=== PATIENT | male | born 2000 | race Hispanic/Latino ===

== ENCOUNTER 2021-03-06 22:32 | Emergency (ER) | payer SELFPAY ==
[~2021-03-06] VITALS: Ht 172.7 cm; Wt 122.5 kg
[2021-03-06] MEDS ORDERED: LIDOCAINE HCL 2% VISCOUS 15 ML UDCUP PO ONE (23:00)
[2021-03-06] MEDS ORDERED: DICYCLOMINE 20MG (10MG/ML) AMP IM ONE (23:00)
[2021-03-06] MEDS ORDERED: FAMOTIDINE 20MG TAB PO ONE (23:00)
[2021-03-06] MEDS ORDERED: MAG/ALUM/SIMETH 30 ML UDCUP PO ONE (23:00)
[2021-03-06 23:01] LABS: APPEARANCE,URINE Clear (CLEAR); BILIRUBIN,URINE Negative (NEGATIVE); COLOR,URINE Yellow (YELLOW); GLUCOSE, URINE (UA) Negative (NEGATIVE); KETONES,URINE Negative (NEGATIVE); LEUKOCYTE ESTERASE ,URINE Negative (NEGATIVE); NITRATE,URINE Negative (NEGATIVE); OCCULT BLOOD,URINE Trace (NEGATIVE); PH,URINE 8.5 (5.0-8.0); PROTEIN,URINE Negative (NEGATIVE); UROBILINOGEN,URINE 0.2 mg/dL (0.2-1.0)
[2021-03-06] MEDS ORDERED: LIDOCAINE HCL 2% VISCOUS 15 ML UDCUP ONE (23:14)
[2021-03-06] MEDS ORDERED: DICYCLOMINE HCL 10 MG/5 ML ML PO ONE (23:15)
[2021-03-06] MEDS ORDERED: FAMOTIDINE 20MG TAB ONE (23:15)
[2021-03-06] MEDS ORDERED: MAG/ALUM/SIMETH 30 ML UDCUP ONE (23:15)
[2021-03-06 23:16] LABS: BASOPHILS % (AUTO) 0.1 % (0.0-5.0); EOSINOPHILS % (AUTO) 0.1 % (0.0-8.0); HEMATOCRIT 42.6 % (42-54); LYMPHOCYTES % (AUTO) 10.3 % (21.0-51.0); MEAN CORPUSCULAR HEMOGLOBIN 29.2 pg (27.0-33.0); MEAN CORPUSCULAR VOLUME 85.9 fL (80-100); MONOCYTES % (AUTO) 4.1 % (3.0-13.0); NEUTROPHILS % (AUTO) 84.9 % (40.0-77.0); PLATELET COUNT (AUTO) 305 K/uL (130-400); RED BLOOD CELL COUNT(AUTO) 4.96 MIL/uL (4.50-6.20); RED CELL DISTRIBUTION WIDTH 13.5 % (11.0-15.5); WHITE BLOOD COUNT (AUTO) 19.1 K/uL (4.8-10.8)
[2021-03-06 23:18] LABS: BACTERIA,URINE None Seen /HPF (None Seen); SQUAMOUS EPITHELIAL CELL,UR Few /HPF (0-2)
[2021-03-06 23:19] LABS: WBC,URINE None Seen /HPF (0-1)
[2021-03-06 23:25] LABS: CREATININE 0.8 mg/dL (0.5-1.5); POTASSIUM 3.4 mmol/L (3.5-5.1)
[2021-03-06 23:30] LABS: ALBUMIN 4.2 g/dL (3.5-5.0); BILIRUBIN,TOTAL 0.7 mg/dL (0.2-1.0); TOTAL PROTEIN, SERUM 8.2 g/dL (6.0-8.3)
[2021-03-06] MEDS ORDERED: POTASSIUM BICARB/CIT AC 25 MEQ TABLET.EFF PO ONE (23:30)
[2021-03-07] MEDS ORDERED: POTASSIUM BICARB/CIT AC 25 MEQ TABLET.EFF ONE (00:09)
[2021-03-07] MEDS ORDERED: ONDA4TAB10 PO (01:45)
[2021-03-07] MEDS ORDERED: METO-296 PO (01:45)
[2021-03-07] MEDS ORDERED: DICY20TA2 PO (01:46)
[2021-03-07 01:58] VITALS: BP 122/76
== END 2021-03-07 02:04 | disposition home or self-care (01) ==
LOC: EDH 22:32
DX: E86.9 Volume depletion, unspecified (principal); R11.10 Vomiting, unspecified; E66.9 Obesity, unspecified; Z79.899 Other long term (current) drug therapy; Z68.41 Body mass index [BMI] 40.0-44.9, adult
CPT/HCPCS: 36415; 74176; 80053; 81001; 83690; 85025

== ENCOUNTER 2021-11-27 01:42 | Emergency (ER) | payer OTHER ==
[~2021-11-27] VITALS: Ht 172.7 cm; Wt 123.4 kg
[~2021-11-27 01:42] MED LIST: ONDA4TAB10 PO
[2021-11-27] MEDS ORDERED: KETOROLAC 15MG/ML VIAL (15MG/ML) IV ONE (02:30)
[2021-11-27] MEDS ORDERED: ONDANSETRON 4MG INJ IVP ONE (02:30)
[2021-11-27] MEDS ORDERED: 0.9%NACL 1000ML 1,000 ML IV ONE (02:30)
[2021-11-27 02:51] LABS: BASOPHILS % (AUTO) 0.1 % (0.0-5.0); HEMATOCRIT 46.6 % (42-54); LYMPHOCYTES % (AUTO) 5.2 % (21.0-51.0); MEAN CORPUSCULAR HEMOGLOBIN 29.5 pg (27.0-33.0); MEAN CORPUSCULAR HGB CONC 34.5 g/dL (32.0-36.0); MEAN CORPUSCULAR VOLUME 85.3 fL (79-99); MONOCYTES % (AUTO) 1.8 % (3.0-13.0); NEUTROPHILS % (AUTO) 92.3 % (40.0-77.0); PLATELET COUNT (AUTO) 370 K/uL (130-400); RED BLOOD CELL COUNT(AUTO) 5.46 MIL/uL (4.50-6.20); RED CELL DISTRIBUTION WIDTH 13.1 % (11.0-15.5); WHITE BLOOD COUNT (AUTO) 21.6 K/uL (4.8-10.8)
[2021-11-27] MEDS ORDERED: DiphenhydrAMINE HCL 50 MG/ML VIAL IV ONE (03:00)
[2021-11-27] MEDS ORDERED: HALOPERIDOL INJ 5 MG/ML VIAL IV SCH (03:00)
[2021-11-27 03:11] LABS: CREATININE 0.9 mg/dL (0.5-1.5); POTASSIUM 4.4 mmol/L (3.5-5.1)
[2021-11-27 03:15] LABS: ALBUMIN 4.5 g/dL (3.5-5.0)
[2021-11-27] MEDS ORDERED: COMP10 PO (03:49)
[2021-11-27 05:00] VITALS: BP 145/86
== END 2021-11-27 05:27 | disposition home or self-care (01) ==
LOC: EDH 01:42
DX: A05.9 Bacterial foodborne intoxication, unspecified (principal); E86.9 Volume depletion, unspecified; R11.2 Nausea with vomiting, unspecified; Z79.1 Long term (current) use of non-steroidal anti-inflammatories (NSAID)
CPT/HCPCS: 99284; 96374; 96361; 96375; 86677; 80053; 85025; 36415; J1200; J7030; J1630; J2405; J1885

== ENCOUNTER 2023-03-29 07:53 | Emergency (ER) | payer OTHER ==
[~2023-03-29] VITALS: Ht 172.7 cm; Wt 136.1 kg
[~2023-03-29 07:53] MED LIST changes: +COMP10 PO
[2023-03-29] MEDS ORDERED: IBUPROFEN 600 MG TABLET PO ONE (08:30)
[2023-03-29 09:03] LABS: SARS-CoV-2, RNA, NAAT NEGATIVE SARS CoV-2 (NEGATIVE)
[2023-03-29 09:12] LABS: INFLUENZA TYPE A Negative For Type A (NEGATIVE); INFLUENZA TYPE B Negative For Type B (NEGATIVE)
[2023-03-29 09:57] VITALS: BP 133/78; PULSE 78; RESP 18; O2SAT 98
[2023-03-29] MEDS ORDERED: HYDROCODONE/ACETAMINOPHEN 5/325 MG TAB PO ONE (10:00)
== END 2023-03-29 10:00 | disposition home or self-care (01) ==
LOC: EDH 07:53
DX: R07.89 Other chest pain (principal); Z20.822 Contact with and (suspected) exposure to COVID-19; Z79.899 Other long term (current) drug therapy; Z98.890 Other specified postprocedural states
CPT/HCPCS: 99284; 71045; 87635; 87804 ×2; C9803

== ENCOUNTER 2023-07-16 21:43 | Emergency (ER) | payer OTHER ==
[~2023-07-16] VITALS: Ht 172.7 cm; Wt 136.1 kg
[~2023-07-16 21:43] MED LIST changes: -COMP10 PO; +PROC10TA13 PO
[2023-07-16 22:29] LABS: RAPID GROUP A STREP negative (NEGATIVE)
[2023-07-16 22:37] LABS: INFLUENZA TYPE A Negative For Type A (NEGATIVE); INFLUENZA TYPE B Negative For Type B (NEGATIVE)
[2023-07-16 22:41] LABS: SARS-CoV-2, RNA, NAAT NEGATIVE SARS CoV-2 (NEGATIVE)
[2023-07-16 23:07] LABS: BASOPHILS # (AUTO) 0.02 K/uL (0.00-0.20); BASOPHILS % (AUTO) 0.1 % (0.0-5.0); HEMATOCRIT 44.4 % (42-54); IMMATURE GRANULOCYTE ABSOLUTE 0.05 K/uL (0-1); LYMPHOCYTES # (AUTO) 1.1 K/uL (1.0-4.8); MEAN CORPUSCULAR HEMOGLOBIN 29.4 pg (27.0-33.0); MEAN CORPUSCULAR HGB CONC 34.7 g/dL (32.0-36.0); MEAN CORPUSCULAR VOLUME 84.9 fL (79-99); MONOCYTES # (AUTO) 0.3 K/uL (0.1-1.0); NEUTROPHILS # (AUTO) 13.5 K/uL (1.8-7.7); NEUTROPHILS % (AUTO) 90.6 % (40.0-77.0); PLATELET COUNT (AUTO) 328 K/uL (130-400); RED BLOOD CELL COUNT(AUTO) 5.23 MIL/uL (4.50-6.20); RED CELL DISTRIBUTION WIDTH 13.1 % (11.0-15.5); WHITE BLOOD COUNT (AUTO) 14.9 K/uL (4.8-10.8)
[2023-07-16 23:21] LABS: POTASSIUM 3.7 mmol/L (3.5-5.1)
[2023-07-16 23:25] LABS: ALBUMIN 4.4 g/dL (3.5-5.0); BILIRUBIN,TOTAL 1.8 mg/dL (0.2-1.0); TOTAL PROTEIN, SERUM 8.5 g/dL (6.0-8.3)
[2023-07-17] MEDS ORDERED: OMEP40CA21 PO (00:27)
[2023-07-17] MEDS ORDERED: ONDA4TAB10 PO (00:27)
[2023-07-17 01:36] VITALS: BP 135/80; PULSE 75; RESP 20; O2SAT 100
[2023-07-17] MEDS: ONDANSETRON ODT 4MG TAB SL ONE (02:19)
[2023-07-17] MEDS: FAMOTIDINE 20MG TAB PO ONE (02:19)
== END 2023-07-17 04:04 | disposition home or self-care (01) ==
LOC: EDH 21:43
DX: A08.4 Viral intestinal infection, unspecified (principal); E66.9 Obesity, unspecified; Z20.822 Contact with and (suspected) exposure to COVID-19; Z79.899 Other long term (current) drug therapy; Z98.890 Other specified postprocedural states
CPT/HCPCS: 36415; 80053; 83690; 85025; 87635; 87804; 87880

== ENCOUNTER 2023-07-19 08:35 | Emergency (ER) | payer OTHER ==
[~2023-07-19] VITALS: Ht 170.2 cm; Wt 132.9 kg
[~2023-07-19 08:35] MED LIST changes: +OMEP40CA21 PO
[2023-07-19 09:02] LABS: BASOPHILS # (AUTO) 0.03 K/uL (0.00-0.20); BASOPHILS % (AUTO) 0.3 % (0.0-5.0); EOSINOPHILS # (AUTO) 0.06 K/uL (0.00-0.70); EOSINOPHILS % (AUTO) 0.5 % (0.0-8.0); HEMATOCRIT 45.3 % (42-54); IMMATURE GRANULOCYTE ABSOLUTE 0.04 K/uL (0-1); LYMPHOCYTES # (AUTO) 1.6 K/uL (1.0-4.8); MEAN CORPUSCULAR HEMOGLOBIN 29.7 pg (27.0-33.0); MEAN CORPUSCULAR HGB CONC 34.2 g/dL (32.0-36.0); MEAN CORPUSCULAR VOLUME 86.8 fL (79-99); MONOCYTES # (AUTO) 0.7 K/uL (0.1-1.0); MONOCYTES % (AUTO) 6.3 % (3.0-13.0); NEUTROPHILS # (AUTO) 8.5 K/uL (1.8-7.7); NEUTROPHILS % (AUTO) 77.5 % (40.0-77.0); PLATELET COUNT (AUTO) 295 K/uL (130-400); RED BLOOD CELL COUNT(AUTO) 5.22 MIL/uL (4.50-6.20); RED CELL DISTRIBUTION WIDTH 12.8 % (11.0-15.5); WHITE BLOOD COUNT (AUTO) 10.9 K/uL (4.8-10.8)
[2023-07-19 09:15] LABS: ALBUMIN 4.3 g/dL (3.5-5.0); BILIRUBIN,TOTAL 2.3 mg/dL (0.2-1.0); CREATININE 1.1 mg/dL (0.5-1.3); POTASSIUM 3.7 mmol/L (3.5-5.1); TOTAL PROTEIN, SERUM 8.2 g/dL (6.0-8.3)
[2023-07-19 09:34] LABS: AMPHET/METH SCREEN,URINE NEGATIVE (NEGATIVE); BARBITURATE SCREEN, URINE NEGATIVE (NEGATIVE); BENZODIAZEPINES SCREEN,URINE NEGATIVE (NEGATIVE); CANNABINOID SCREEN,URINE POSITIVE (NEGATIVE); COCAINE SCREEN,URINE NEGATIVE (NEGATIVE); OPIATE SCREEN,URINE NEGATIVE (NEGATIVE); PHENCYCLIDINE SCREEN,URINE NEGATIVE (NEGATIVE)
[2023-07-19] MEDS: ONDANSETRON 4MG INJ IVP ONE (10:09)
[2023-07-19] MEDS: LACTATED RINGERS 1000ML 1,000 ML IV ONE (10:09)
[2023-07-19] MEDS: PANTOPRAZOLE 40 MG/VIAL IVP ONE (10:09)
[2023-07-19] MEDS ORDERED: PANT40TA55 PO (10:10)
[2023-07-19 11:15] VITALS: TEMP 99.2
[2023-07-19] MEDS: IBUPROFEN 800 MG TAB PO ONE (11:15)
[2023-07-19] MEDS: HALOPERIDOL INJ 5 MG/ML VIAL IV STA (11:48)
[2023-07-19 12:29] VITALS: BP 132/78; PULSE 78; RESP 18; O2SAT 98
== END 2023-07-19 12:29 | disposition home or self-care (01) ==
LOC: EDH 08:35
DX: Z79.899 Other long term (current) drug therapy (principal); Z98.890 Other specified postprocedural states; J66.2 Cannabinosis; K76.0 Fatty (change of) liver, not elsewhere classified
CPT/HCPCS: 99285; 96374; 76705; 96375; 96361; 82550; 80053; 80305; 83690; 85025; 36415; 93005; J7120; J1630; J2405; C9113

== ENCOUNTER 2023-11-16 09:32 | Emergency (ER) | payer OTHER ==
[~2023-11-16] VITALS: Ht 170.2 cm; Wt 136.1 kg
[~2023-11-16 09:32] MED LIST changes: +ONDA-243 PO; -ONDA4TAB10 PO; +PANT40TA55 PO; +PROC-30 PO; -PROC10TA13 PO
[2023-11-16 10:07] LABS: BASOPHILS # (AUTO) 0.04 K/uL (0.00-0.20); BASOPHILS % (AUTO) 0.4 % (0.0-5.0); EOSINOPHILS # (AUTO) 0.05 K/uL (0.00-0.70); EOSINOPHILS % (AUTO) 0.5 % (0.0-8.0); HEMATOCRIT 40.9 % (42-54); IMMATURE GRANULOCYTE ABSOLUTE 0.06 K/uL (0-1); LYMPHOCYTES # (AUTO) 1.6 K/uL (1.0-4.8); MEAN CORPUSCULAR HEMOGLOBIN 29.3 pg (27.0-33.0); MEAN CORPUSCULAR HGB CONC 34.2 g/dL (32.0-36.0); MEAN CORPUSCULAR VOLUME 85.6 fL (79-99); MONOCYTES # (AUTO) 0.6 K/uL (0.1-1.0); MONOCYTES % (AUTO) 6.2 % (3.0-13.0); NEUTROPHILS # (AUTO) 7.6 K/uL (1.8-7.7); NEUTROPHILS % (AUTO) 76.3 % (40.0-77.0); PLATELET COUNT (AUTO) 295 K/uL (130-400); RED BLOOD CELL COUNT(AUTO) 4.78 MIL/uL (4.50-6.20); RED CELL DISTRIBUTION WIDTH 13.2 % (11.0-15.5); WHITE BLOOD COUNT (AUTO) 9.9 K/uL (4.8-10.8)
[2023-11-16 10:07] LABS: APPEARANCE,URINE CLEAR (CLEAR); BILIRUBIN,URINE NEGATIVE (NEGATIVE); COLOR,URINE LIGHT-YELLOW (YELLOW); GLUCOSE, URINE (UA) NEGATIVE (NEGATIVE); KETONES,URINE NEGATIVE (NEGATIVE); LEUKOCYTE ESTERASE ,URINE NEGATIVE Leu/uL (NEGATIVE); NITRATE,URINE NEGATIVE (NEGATIVE); OCCULT BLOOD,URINE SMALL (NEGATIVE); PH,URINE 6.5 (5.0-8.0); PROTEIN,URINE NEGATIVE (NEGATIVE); UROBILINOGEN,URINE 0.2 mg/dL (0.2-1.0)
[2023-11-16 10:15] LABS: CREATININE 1.2 mg/dL (0.5-1.3); POTASSIUM 3.9 mmol/L (3.5-5.1)
[2023-11-16 10:16] LABS: AMPHET/METH SCREEN,URINE POSITIVE (NEGATIVE); BARBITURATE SCREEN, URINE NEGATIVE (NEGATIVE); BENZODIAZEPINES SCREEN,URINE NEGATIVE (NEGATIVE); CANNABINOID SCREEN,URINE POSITIVE (NEGATIVE); COCAINE SCREEN,URINE NEGATIVE (NEGATIVE); OPIATE SCREEN,URINE NEGATIVE (NEGATIVE); PHENCYCLIDINE SCREEN,URINE NEGATIVE (NEGATIVE)
[2023-11-16 10:20] LABS: BILIRUBIN,TOTAL 1.2 mg/dL (0.2-1.0); TOTAL PROTEIN, SERUM 7.7 g/dL (6.0-8.3)
[2023-11-16 10:21] LABS: ADD UA MICROSCOPIC YES
[2023-11-16 10:24] LABS: MUCUS,URINE RARE LPF (None Seen); WBC,URINE 0-1 /HPF (0-1)
[2023-11-16 11:21] VITALS: BP 132/84; PULSE 78; RESP 18; O2SAT 98
== END 2023-11-16 11:23 | disposition home or self-care (01) ==
LOC: EDH 09:32
DX: T38.7X1A Poisoning by androgens and anabolic congeners, accidental (unintentional), initial encounter (principal); E66.9 Obesity, unspecified; F41.9 Anxiety disorder, unspecified; Z79.899 Other long term (current) drug therapy; Z98.890 Other specified postprocedural states; Y92.89 Other specified places as the place of occurrence of the external cause
CPT/HCPCS: 36415; 80053; 80305; 81001; 84484; 85025; 93005